=== PATIENT | female | born 1935 | race Asian ===

== ENCOUNTER 2017-08-10 09:00 | Inpatient (IN) ==
[2017-08-10] MEDS ORDERED: NORMAL SALINE 10 ML SYRINGE FLUSH IVP PRN (09:32)
[2017-08-10] MEDS ORDERED: Sodium Chloride 0.9% 1,000 ML PRIMARY IV ONE (09:32)
[2017-08-10] MEDS ORDERED: LIDOCAINE HCL 2 % 10 ML JELLY URO-JECT TOPICAL PRN (09:37)
--- NOTE | 2017-08-10 09:55 | EKG ---
[address] [place] [address] Measurements Intervals [place] Rate: 69 P: 82 LA: 140 QRS: 70 QRSD: 84 T: 162 QT: 403 QTc: 422 Interpretive Statements SINUS RHYTHM ANTEROSEPTAL MYOCARDIAL INFARCTION OF INDETERMINATE AGE Compared to ECG 07/21/2016 19:55:38 Myocardial infarct finding now present Atrial fibrillation no longer present T-wave abnormality no longer present Electronically Signed On 08-10-17 14:06:20 [facility] by Vahe Ayala [email or web address]
[2017-08-10 10:26] LABS: BLOOD UREA NITROGEN 42 mg/dL (7-22); MAGNESIUM 1.3 mg/dL (1.6-2.4); SERUM ALBUMIN 3.5 g/dL (3.5-4.8)
--- NOTE | 2017-08-10 10:49 | DI ---
XR CXR 2VW PA/LAT,08/10/2017 9:32 AM: Clinical History: Rales Previous Exam: July 22, 2016 Findings: Only a frontal radiograph of the chest was obtained, and demonstrates stable increased lung volumes. There is a comminuted fracture of the right proximal humerus. There is no infiltrate or effusion. The cardiomediastinum is unremarkable. Impression: 1. No acute pulmonary disease. 2. Right comminuted proximal humeral fracture.
[2017-08-10 10:52] LABS: BASOPHILS # (AUTO) 0.01 10*3/UL; BASOPHILS % (AUTO) 0.1 % (0-1); EOSINOPHILS # (AUTO) 0 10*3/UL; EOSINOPHILS % (AUTO) 0 % (0-8); Hematocrit [HCT] 27.2 % (37.0-47.0); Hemoglobin [HGB] 8.5 g/dL (12.0-16.0); MEAN CORPUSCULAR HEMOGLOBIN 28.3 PG (27-31); MEAN CORPUSCULAR HGB CONC 31.3 g/dL (33-37); MEAN CORPUSCULAR VOLUME 90.7 FL (81-99); MEAN PLATELET VOLUME 9.5 FL (7.4-12.2); MONOCYTES # (AUTO) 0.72 10*3/UL (0.3-0.8); MONOCYTES % (AUTO) 5.3 % (5-15); NEUTROPHILS # (AUTO) 12.31 10*3/UL; NEUTROPHILS % (AUTO) 91.4 % (50-80)
[2017-08-10 10:53] LABS: VENOUS PH 7.4 (7.32-7.42)
[2017-08-10 11:00] LABS: PLATELET MORPHOLOGY COMMENT NORMAL MORPHOLOGY (NORM); WBC MORPHOLOGY COMMENT NORMAL MORPHOLOGY (NORM)
[2017-08-10 11:01] LABS: RBC MORPHOLOGY COMMENT SEE COMMENTS (NORM)
[2017-08-10 12:04] LABS: BILIRUBIN,URINE MODERATE (NEG); CLARITY,URINE CLEAR (CLEAR); COLOR,URINE YELLOW (Y); GLUCOSE, URINE (UA) NEGATIVE (NEG); NITRATE,URINE POSITIVE (NEG); OCCULT BLOOD,URINE NEGATIVE (NEG); PH,URINE 5.5 (5.0-8.5); PROTEIN,URINE 30 mg/dl (NEG); UROBILINOGEN,URINE 0.2 EU/dL (0.2)
[2017-08-10 12:09] LABS: URINE SAMPLE TYPE CATH SPECIMEN
[2017-08-10 12:10] LABS: BACTERIA,URINE FEW; SQUAMOUS EPITHELIAL CELL,UR FEW
--- NOTE | 2017-08-10 12:30 | DI ---
CT Head WO Contrast,08/10/2017 9:32 AM: Clinical History: Confusion Previous Exam: None at this facility. Findings: Multiple helically acquired CT images are obtained through the brain without contrast, and demonstrat e diffuse age related volume loss. There is no mass, hemorrhage nor midline shift. Peripheral vascula r calcifications are noted. Impression: Diffuse age-related volume loss without acute intracranial pathology.
[2017-08-10] MEDS ORDERED: ASPIRIN 81 MG (BABY) CHEWABLE TABLET PO ONE (12:47)
[2017-08-10] MEDS ORDERED: cefTRIAXone Inj 1 GM in Sodium Chloride 0.9% 100 ML IV ONE (13:03)
--- NOTE | 2017-08-10 14:01 | DI ---
XR SHOULDER MIN 2VW,08/10/2017 9:39 AM: Clinical History: Pain status post fall Previous Exam: None at this facility. Findings: 3 views of the left shoulder were obtained, and demonstrate a left proximal humeral head fracture. Th ere is displacement of the fragments. Alignment relative to the scapula is near-anatomic. The adjacent left lung and chest wall are unremarkable. Impression: Slightly comminuted left proximal humeral fracture.
--- NOTE | 2017-08-10 14:01 | DI ---
XR HUMERUS MIN 2VW,08/10/2017 9:40 AM: Clinical History: Shoulder pain status post fall. Previous Exam: Same date. Findings: AP and lateral views of the left humerus demonstrate a comminuted left proximal humeral head fracture . The remainder of the humerus is unremarkable. Relationship with the glenoid is near-anatomic. Impression: Comminuted left humeral head fracture.
--- NOTE | 2017-08-10 16:02 | PDOC ---
Past Medical History Medical History: 1. COPD, recently placed on 2 L of oxygen in the last 2 weeks. 2. Tobacco abuse. 3. Reportedly, osteoporosis Surgical History: None Pertinent Family History: She states that her father of lung cancer Past Social History: Smokes, doesn't drink alcohol, lives with her significant other, has 3 children described as healthy. Tobacco Use: Former Smoker In the Past 12 Months, Have Used or Abuse Any of the Following Substance: None Medication / Allergies Home Medications: Home Medications Medication Instructions Recorded Confirmed Type Albuterol Sulfate [Ventolin Hfa] 2 puff INH Q4-6H #1 inh 09/15/16 06/28/17 Rx Amlodipine Besylate 1 unit PO QD #90 tab 04/26/17 Clinic Clonidine HCl 1 tab PO BID #180 tab 04/26/17 Clinic Losartan Potassium 1 unit PO QD #90 tab 04/26/17 Clinic amlodipine 10 mg tablet 10 mg PO QDAY #90 tab 06/30/17 06/30/17 Rx fluticasone 200 mcg-vilanterol 25 1 inh INH QD #1 ea 06/30/17 06/30/17 Rx mcg/dose powder for inhalation Allergies/Adverse Reactions: Allergies 3 Allergy/AdvReac Type Severity Reaction Status Date / Time No Known Allergies Allergy Verified 08/10/17 09:29 Exam - Vitals Vital Signs: Vital Signs Temperature 96.6 F Temperature Source Temporal Artery Scan Pulse Rate [Pulse Oximeter] 70 Respiratory Rate 20 Blood Pressure [Right Arm] 78/64 Pulse Ox 100 Oxygen Flow Rate 4 Oxygen Delivery Method Nasal Cannula Height 4 ft 8 in Weight 80 lb Results - Labs CBC and BMP: 08/10/17 10:47 08/10/17 10:13
--- NOTE | 2017-08-10 16:17 | PDOC ---
HPI - History of Present Illness Date of Service: 08/10/17 Time of Service: 16:00 Chief Complaint: Weakness History of Present Illness: This is an 82 years old female with medical history significant for history of hypertension, COPD on oxygen, failure to thrive, right breast mass that she refused investigations for before who was sent to the ER because of weakness. In the ER she was found to be hypotensive, lab tests indicated acute renal failure, elevated troponin and also elevated lactate she was given fluids, aspirin and a dose of Rocephin. Patient herself doesn't know who called the medics and why she is in the hospital. When specifically asked about chest pain she denied chest pain, denied shortness of breath. She denied nausea, denied vomiting. She did admit to the falling but she couldn 't tell me exactly how did that happen but she said 2 weeks ago. Apparently she is not eating well. Patient indicated to nursing staff that she wanted to . When asked specifically about that she couldn't tell me why she would want that. She did indicate that she wanted to be DO NOT RESUSCITATE though. There is a an old record indicated that she signed DO NOT RESUSCITATE. Communication with her is also difficult because of the language barrier in addition she tends to ramble and goes off track. Past Medical History Medical History: 1. COPD, on oxygen 2 L a minute. 2. Tobacco abuse. 3. Reportedly, osteoporosis. 4. Hypertension. 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 6. Failure to thrive Surgical History: None Pertinent Family History: She states that her father of lung cancer Past Social History: Smokes, doesn't drink alcohol, lives with her significant other, has 3 children described as healthy. Tobacco Use: Former Smoker In the Past 12 Months, Have Used or Abuse Any of the Following Substance: None Alcohol Use: None Medication / Allergies Home Medications: Home Medications Medication Instructions Recorded Confirmed Type Albuterol Sulfate [Ventolin Hfa] 2 puff INH Q4-6H #1 inh 09/15/16 08/10/17 Rx Amlodipine Besylate 1 unit PO QD #90 tab 04/26/17 Clinic Clonidine HCl 1 tab PO BID #180 tab 04/26/17 Clinic Losartan Potassium 1 unit PO QD #90 tab 04/26/17 Clinic amlodipine 10 mg tablet 10 mg PO QDAY #90 tab 06/30/17 08/10/17 Rx fluticasone 200 mcg-vilanterol 25 1 inh INH QD #1 ea 06/30/17 08/10/17 Rx mcg/dose powder for inhalation Allergies/Adverse Reactions: Allergies 3 Allergy/AdvReac Type Severity Reaction Status Date / Time No Known Allergies Allergy Verified 08/10/17 16:45 Review of Systems - Review of Systems All Systems: Reviewed & No Additional Complaints Except as Stated Exam - General General Appearance: No Acute Distress Additional General Exam Details: Patient is cachectic - Head Head Exam: Normal Inspection - ENT ENT Exam: POSITIVE: Normal Exam - Neck Neck Exam: Normal Inspection - Respiratory Additional Respiratory Exam Details: Few crackles at the bases - Cardiovascular Cardiovascular Exam: POSITIVE: RRR - GI/Abdominal GI/Abdominal Exam: POSITIVE: Normal Bowel Sounds, Non Tender, Non Distended, Soft - Rectal Rectal Exam: POSITIVE: Deferred - External Exam: POSITIVE: Deferred Exam: POSITIVE: Deferred - Extremities Additional Extremities Exam Details: No edema. Left arm in a sling. Bruising noted on the external surface of the left arm - Neurological Neurological Exam: POSITIVE: Alert Additional Neurological Exam Details: She does not know the year or the month. She doesn't know where she was at. She can't give a clear history. - Psychiatric Psychiatric Exam: POSITIVE: Flat Affect - Integumentary Additional Integumentary Exam Details: Poor hygiene noted in addition to decubitus ulceration at the coccyx. Results - Labs CBC and BMP: 08/10/17 10:47 08/10/17 10:13 Assessment and Plan - Patient Problems (1) Hypotension Current Visit: Yes Status: Acute Comment: Maybe secondary to sepsis or dehydration. I think will give her some fluid and give a dose of antibiotics. And then will see her response. I did speak with her son they don't want aggressive measures. Because of her elevated BNP will be cautious with fluid resuscitation. Code(s): I95.9 - Hypotension, unspecified (2) Left humeral fracture Current Visit: Yes Status: Acute Comment: will write for pain medication, her left arm is in a sling. Code(s): S42.302A - Unspecified fracture of shaft of humerus, left arm, initial encounter for closed fracture (3) Non-ST elevation [place] (NSTEMI) Current Visit: Yes Status: Acute Comment: She is denying chest pain, denying shortness of breath. This may be secondary to the hypertension itself. I think because of the malnourishment and the anemia I don't think will give her more anticoagulation. She got aspirin continue with the aspirin and will put her on Lipitor. Because of the anemia of unclear etiology it is not clear whether she bled or all this is a result of her malnourishment I don't think I'll give her anticoagulation or add Plavix. In addition she has a history of previous rectus sheath hematoma. Code(s): I21.4 - Non-ST elevation (NSTEMI) myocardial infarction (4) Acute renal failure Current Visit: Yes Status: Acute Comment: Her creatinine was normal before in 2016 will give her some fluid and see whether her kidney function will improve. We'll watch her output. Code(s): N17.9 - Acute kidney failure, unspecified (5) Anemia Current Visit: Yes Status: Acute Comment: We'll check a ferritin, B12 and folate level. We'll check iron stores. This may be secondary to her malnourishment. She isn't giving a history of bleeding. Will put her on because omeprazole . Code(s): D64.9 - Anemia, unspecified (6) Loss of weight Current Visit: No Status: Acute Comment: She is not eating well. And she's been losing weight. Previous CT indicated that she had a right breast mass however apparently she refused investigation for it before. This may be secondary to underlying cancer. Code(s): R63.4 - Abnormal weight loss
[2017-08-10] MEDS ORDERED: DOCUSATE 100 MG CAPSULE PO PRN (16:18)
[2017-08-10] MEDS ORDERED: LIDOCAINE W/ SODIUM BICARB 0.5 ML SYR SUBD PRN (16:18)
[2017-08-10] MEDS ORDERED: ONDANSETRON 4 MG/2 ML VIAL IVP PRN (16:18)
[2017-08-10] MEDS ORDERED: MORPHINE SULFATE 2 MG/1 ML IVP PRN ×2 (16:41→17:16)
[2017-08-10] MEDS ORDERED: Ertapenem Inj 1 GM in Sodium Chloride 0.9% 100 ML IV SCH (16:45)
[2017-08-10] MEDS ORDERED: Heparin Drip 25,000 UNIT/500 ML BAG IV SCH (17:00)
[2017-08-10] MEDS ORDERED: Magnesium Sulfate 2gm (Premix) 2 GM/50 ML BAG IV ONE (17:07)
[2017-08-10] MEDS ORDERED: Sodium Chloride 0.9% 100 ML IV ONE (17:23)
[2017-08-10] MEDS ORDERED: ERTAPENEM 1 GM VIAL ONE (17:23)
[2017-08-10] MEDS: Sodium Chloride 0.9% 1,000 ML PRIMARY IV SCH (17:30)
[2017-08-10] MEDS: ACETAMINOPHEN 325 MG TABLET PO PRN (17:30)
[2017-08-10] MEDS: ATORVASTATIN 40 MG TABLET PO SCH (20:47)
--- NOTE | 2017-08-10 20:50 | PDOC ---
General Adult HPI - General Chief Complaint: General Medical Stated Complaint: dehydrated, not eating, "want to " Date Seen by Provider: 08/10/17 Time Seen by Provider: 09:10 Source: POSITIVE: Patient, EMS Exam Limitations: POSITIVE: Language barrier (Romanian is patient's second language; Congolese is the patient's [place] tongue.) Nurse's Notes Reviewed & Considered: Yes EMS Report Reviewed & Considered: Verbal - History of Present Illness Initial Comment: The patient is an 82-year-old female who is brought to the emergency room by ambulance. According to ambulance report, the patient is cared for by her , who is ill with prostate cancer; her also takes care of their handicapped grandson. Patient has been getting progressively weak for the last 2 weeks. Patient fell a few days ago, injuring her arm, left. Patient has not been able to walk for many days. She reportedly has not eaten for at least 2 days. Paramedics report that on their arrival she was sitting in a seat which was soaked with urine. There were some feces on her lower legs. Paramedics report a blood pressure of 65/50 at the scene. Patient states that she "used to smoke "but stopped smoking 6 months ago. She reportedly has a history of hypertension for which she takes amlodipine, clonidine and losartan and she also takes spiral lactone. Patient denies any head chest or abdominal pain. Patient states that "she wants to ". Patient is very unkempt and is cachectic and is estimated that the patient weighs about 70-80 pounds. Have you received a tetanus shot in the past 10 years?: Unknown Body Location Affected: REPORTS: Upper Extremity (L) (Injured left shoulder in a fall several days ago), Other (Progressive weakness and inability to care for herself, or for her to care for her. Not eating or drinking incontinent of urine and probably stool) Timing: REPORTS: Gradual, Unknown Duration: Unknown Severity: Severe Quality: REPORTS: Other (Patient denies any pain except to her left shoulder) Context: REPORTS: Recent Trauma (Fell a few days ago injuring her left shoulder) Modifying Factors: improves with: Other (Progressive weakness and patient presently unable to stand) Similar Symptoms Previously: No Recent Care Received: REPORTS: Denies Any Prior Injuries Related to Current Complaint?: Yes (injury to left shoulder as above) - Patient Home Medications Home Medications: Home Medications Albuterol Sulfate [Ventolin Hfa] 2 puff INH Q4-6H #1 inh 09/15/16 Amlodipine Besylate 1 unit PO QD #90 tab 04/26/17 Clonidine HCl 1 tab PO BID #180 tab 04/26/17 Losartan Potassium 1 unit PO QD #90 tab 04/26/17 amlodipine 10 mg tablet 10 mg PO QDAY #90 tab 06/30/17 fluticasone 200 mcg-vilanterol 25 mcg/dose powder for inhalation 1 inh INH QD # 1 ea 06/30/17 - Patient Allergies Allergies/Adverse Reactions: Allergies 3 Allergy/AdvReac Type Severity Reaction Status Date / Time No Known Allergies Allergy Verified 08/10/17 16:45 Past Medical History - heen HEENT History: Hard of Hearing Cardiovascular History: Hypertension Additional Cardiovasular History: stress test scheduled Respiratory History: COPD, Emphysema, Shortness of Breath, Pneumonia, Home Oxygen Use Gastrointestinal History: Denies History Genitourinary History: Incontinence Endocrine History: Denies History Musculoskeletal History: Osteoporosis, Back Pain Prosthesis or Implant: No Neurological History: Denies History Additional Neurological History: forgetfulness Blood Disorders: Denies History Psychiatric History: Denies History History of Sexually Transmitted Diseases: No Cancer History: Denies History In Past Year Been Physically Harmed or Verbally Threatened: No History of MDRO: No History of Other Communicable Diseases: No Tobacco Use: Former Smoker Alcohol Use: None In the Past 12 Months, Have Used or Abuse Any Substance: None Previous Surgical History: No Type / Date of Surgery: CHOLECYSTECTOMY Anesthesia Reactions: No Malignant Hyperthermia: No Significant Family History: No pertinent family hx Past Medical History Reviewed: Reviewed - No Changes ROS - Limitations ROS Limitations: Language Barrier (Patient difficult to understand; Romanian is her second language with Congolese being her first), Mental Impairment (Patient confused to date and president; oriented to place and person) Constitution: REPORTS: Weakness, Weight Loss Cardiovascular: REPORTS: Denies Cardiac Symptoms Respiratory: REPORTS: Denies Resp Symptoms Neurological: REPORTS: Confusion Gastrointestinal: REPORTS: Denies GI Symptoms Endocrine: REPORTS: Denies Symptoms Musculoskeletal: REPORTS: Recent Injury (Left shoulder pain) Genitourinary: REPORTS: Other (Incontinent) Eyes: REPORTS: Denies Symptoms ENT: REPORTS: Denies Symptoms Skin: REPORTS: Denies Skin Symptoms Lympathic: REPORTS: Denies Lympathic Symptoms Immunologic: POSITIVE: Denies Symptoms Psychiatric: POSITIVE: Denies Psych Symptoms General Adult Exam - General Appearance General Appearance: POSITIVE: Alert, Cooperative, No Acute Distress, Other ( Cachectic with prominent muscle wasting. Estimated the patient weighs between 70 and 80 pounds. Patient not able to stand on scale. Very weak and poorly kept). NEGATIVE: No Evidence of Trauma (Ecchymosis and pain on palpation left shoulder and upper arm) - HEENT HEENT: POSITIVE: Head Inspection Nml, Eyes Inspection Nml, Ears Inspection Nml, Nose Inspection Nml, Oral/Dental Inspect. Nml, Pharynx Inspect. Nml, PERRL, EOMI , Other (Mucous membranes dry) - Pupils Pupil Size: 3 mm: Bilateral (PERRLA) - Neck Neck: POSITIVE: Normal Inspection, Thyroid Normal - Respiratory Respiratory: POSITIVE: Rales (Diffuse rales). NEGATIVE: Breath Sounds Normal - Cardiovascular Cardiovascular: POSITIVE: Regular Rate & Rhythm, No Murmur, No Gallop, PMI Normal Peripheral Pulses: Radial (R): 2+, Radial (L): 2+ - Abdomen Abdomen: Soft: (All Quadrants), Normal Bowel Sounds: (All Quadrants), Denies Tenderness: (All Quadrants), No Splenomegaly: (All Quadrants), No Hepatomegaly: (All Quadrants), No Guarding: (All Quadrants), No Rebound: (All Quadrants), No Palpable Pulse: (All Quadrants), No Palpabale Mass: (All Quadrants), No Distention: (All Quadrants), No Rigidity: (All Quadrants) - Back Back: POSITIVE: Normal Inspection - Skin Skin: POSITIVE: Normal Color, Warm, Dry, No Rash - Extremities Extremity: Non-Tender: (RUE), (RLE), (LLE), Normal ROM: (RUE), (RLE), (LLE), Normal Inspection: (LLE), (RLE), (RUE), Pelvis Stable: (All Extremities), Normal Tendon Exam: (All Extremities), Tender: (LUE), Ecchymosis: (LUE) (left upper arm) Additional Extremities Details: Examination of extremities shows tenderness on palpation over the left shoulder with limited range of motion. There is ecchymosis over the left upper arm. No gross deformities. - Neurological / Psychological Neurological: POSITIVE: Affect Apporpriate, spinal surgeon Normal As Tested, Motor Normal, Sensation Normal, Disoriented To Person, Disoriented To Time. NEGATIVE: Oriented X3 (Confused to date and president) Images - Complete Complete: 1 - Pain on palpation; ecchymosis General Adult Progress - Results Reviewed by me Xrays/CTs/US Reviewed by me: Yes Discussed with Radiologist: Yes Radiology Findings: X-ray left shoulder and upper arm shows a fracture of the left proximal humerus. CT scan of the head shows no acute findings. Chest x- ray normal per radiologist Lab Results Reviewed by Me: Yes (UA shows 5-10 red blood cells and white blood cells, opponent 0.474, BNP 45) CBC and BMP: 08/10/17 10:47 08/10/17 10:13 EKG Interpreted/Reviewed By Me:: Yes (Q waves in anteroseptal leads) EKG Interpretation:: POSITIVE: Normal Sinus Rhythm, Normal Rate, Normal Intervals, Normal ST/T, Abnormal EKG. NEGATIVE: Normal QRS (Q waves anteroseptal leads) - Patient's Progress Pain Medication Addressed: POSITIVE: Not Applicable School/Work Release Addressed: POSITIVE: Not Applicable Re-Examine Time: 13:00 Re-Examine Comment: Patient hydrated with about 700 mL in ER. Condition essentially unchanged. Blood pressure is around 80/50; pulse remains around 70. Case was discussed with Dr. Quintero, hospitalist, who will admit the patient for further evaluation and treatment. Patient signed a DO NOT RESUSCITATE request on 01/22/2016. Status: POSITIVE: Unchanged, Re-Examined Antibiotics Given: Yes (patient given a gram of Rocephin IV in the emergency room after blood cultu) Quality Measure Initiative: CP/AMI: POSITIVE: EKG, ASA - Consult Consult (If Yes, Name of Consulting MD & Time Called): Yes (Dr. Quintero, hospitalist, 1300) Consulting MD will see pt:: POSITIVE: [facility] Admit Counseled: POSITIVE: Patient, RE: Lab Results, RE: Radiology Results, RE: DX, RE : Need for F/U Patient Care Time - Estimated PCT Patient Care Time (In Minutes): 75 Vital Signs - VS Reviewed Vital Signs Reviewed: Yes Discharge Clinical Impression: Dehydration, Cachexia, Left humeral fracture, Non-ST elevation CT (NSTEMI), Anemia, Loss of weight, Urinary tract infection, Elevated brain natriuretic peptide (BNP) level, Do not resuscitate Discharge Disposition: Admit to Inpatient Condition: Poor Date Decision to Admit to Inpatient: 08/10/17 Time Decision to Admit to Inpatient: 11:00
[2017-08-11] MEDS: ACETAMINOPHEN 325 MG TABLET PO PRN ×2 (01:09→15:46)
[2017-08-11 07:28] LABS: BASOPHILS # (AUTO) 0 10*3/UL; BASOPHILS % (AUTO) 0 % (0-1); EOSINOPHILS # (AUTO) 0.01 10*3/UL; EOSINOPHILS % (AUTO) 0.1 % (0-8); Hematocrit [HCT] 25.5 % (37.0-47.0); Hemoglobin [HGB] 7.8 g/dL (12.0-16.0); LYMPHOCYTES # (AUTO) 0.56 10*3/uL; MEAN CORPUSCULAR HEMOGLOBIN 28.2 PG (27-31); MEAN CORPUSCULAR HGB CONC 30.6 g/dL (33-37); MEAN CORPUSCULAR VOLUME 92.1 FL (81-99); MEAN PLATELET VOLUME 9.6 FL (7.4-12.2); MONOCYTES # (AUTO) 0.59 10*3/UL (0.3-0.8); MONOCYTES % (AUTO) 3.9 % (5-15); RED BLOOD COUNT 2.77 10^6/uL (4.20-5.40)
[2017-08-11] MEDS: MAGNESIUM OXIDE 400 MG TABLET PO SCH (07:55)
[2017-08-11] MEDS: OMEPRAZOLE 20 MG CAPSULE PO SCH (07:55)
[2017-08-11 08:12] LABS: PLATELET MORPHOLOGY COMMENT NORMAL MORPHOLOGY (NORM); RBC MORPHOLOGY COMMENT NORMAL MORPHOLOGY (NORM); WBC MORPHOLOGY COMMENT NORMAL MORPHOLOGY (NORM)
[2017-08-11 08:37] LABS: BLOOD UREA NITROGEN 35 mg/dL (7-22); SERUM ALBUMIN 2.5 g/dL (3.5-4.8)
--- NOTE | 2017-08-11 09:05 | PDOC(PROG) ---
Date and Time of Service: 08/11/2017 9:04 AM Interval History: Subjective Patient is still have some pain in the left the shoulder she said when she moves it. She denying chest pain, denying shortness of breath denying nausea. Per further information that we obtained last night apparently patient was laying on the couch soaked with feces and urine when the medic went to get her. She did decubitus ulcer in the coccyx as. Objective : Data - Labs CBC and BMP: 08/11/17 07:16 08/11/17 07:16 Objective : Exam - General General Appearance: No Acute Distress, Cooperative Additional General Exam Details: Cachectic - Head Head Exam: Normal Inspection - Eye Eye Exam: Normal Appearance - ENT ENT Exam: Normal Exam - Neck Neck Exam: Normal Inspection - Respiratory Respiratory Exam: Clear to Auscultation - Bilaterally - Cardiovascular Cardiovascular Exam: RRR - GI/Abdominal GI/Abdominal Exam: Normal Bowel Sounds, Non Tender, Non Distended, Soft, No Organomegaly - Rectal Rectal Exam: Deferred - External Exam: Deferred - Extremities Additional Extremities Exam Details: Left arm in a sling. Bruising noted to the left shoulder - Back Back Exam: Normal Inspection - Neurological Neurological Exam: Alert Additional Neurological Exam Details: Still does not know the month or the year. - Psychiatric Psychiatric Exam: Flat Affect Assessment and Plan - Patient Problems (1) Hypotension Current Visit: Yes Status: Acute Comment: Seems to be better I think we'll cut back on the fluid see whether we can stop it in today. The reason for the hypotension is either due to sepsis or dehydration. But the other possiblity to we discovered is that she is on multiple blood pressure medications that include amlodipine, clonidine, losartan and spironolactone and may be that also played part in it. We've held all her blood pressure medications Code(s): I95.9 - Hypotension, unspecified (2) Left humeral fracture Current Visit: Yes Status: Acute Comment: Pain medication written. I did speak with the Dr. Burnett to have a look at the x-ray and see if there is anything else need to be done. Code(s): S42.302A - Unspecified fracture of shaft of humerus, left arm, initial encounter for closed fracture (3) Non-ST elevation [place] (NSTEMI) Current Visit: Yes Status: Acute Comment: We decided to treat medically just because of her malnourished state. She is on aspirin and Lipitor. She can't tolerate metoprolol yet. Because of the anemia I decided not to give her Plavix or put her on heparin drip. However just because of her the immobility I think will start low-dose Lovenox for DVT prophylaxis Code(s): I21.4 - Non-ST elevation (NSTEMI) myocardial infarction (4) Acute renal failure Current Visit: Yes Status: Acute Comment: This seems to be secondary to dehydration. In addition she was on aldactone we got this information late last night will hold it. its improving I think we'll cut back on her fluid. Code(s): N17.9 - Acute kidney failure, unspecified (5) Anemia Current Visit: Yes Status: Acute Comment: This may be secondary to her malnourished state. She is on omeprazole. Ferritin seems to be low. Will give some iron infusion. Will discuss with the family to see if they accept blood transfusion Code(s): D64.9 - Anemia, unspecified (6) Loss of weight Current Visit: Yes Status: Acute Comment: Unclear reason. She has a mass in the right breast which was not investigated. there may be an element of dementia also Code(s): R63.4 - Abnormal weight loss
[2017-08-11] MEDS: ASPIRIN 325 MG TABLET PO SCH (10:22)
[2017-08-11] MEDS ORDERED: Iron Sucrose Inj 300 MG in Sodium Chloride 0.9% 250 ML IV ONE (13:00)
[2017-08-11] MEDS: Sodium Chloride 0.9% 1,000 ML PRIMARY IV SCH (13:30)
[2017-08-11] MEDS: Ertapenem Inj 0.5 GM in Sodium Chloride 0.9% 100 ML IV SCH (16:24)
[2017-08-11] MEDS ORDERED: SODIUM CHLORIDE 0.9% IV SCH (17:00)
[2017-08-11] MEDS ORDERED: ERTAPENEM IV SCH (17:00)
[2017-08-11] MEDS: FLUTICASONE/SALMETEROL 250/50 UD INHALER INH SCH (19:31)
[2017-08-11] MEDS: ATORVASTATIN 40 MG TABLET PO SCH (20:35)
[2017-08-12] MEDS: Sodium Chloride 0.9% 1,000 ML PRIMARY IV SCH (03:21)
[2017-08-12] MEDS: FLUTICASONE/SALMETEROL 250/50 UD INHALER INH SCH ×2 (07:04→18:55)
[2017-08-12] MEDS: MAGNESIUM OXIDE 400 MG TABLET PO SCH (07:20)
[2017-08-12] MEDS: OMEPRAZOLE 20 MG CAPSULE PO SCH (07:20)
[2017-08-12 08:04] LABS: Hematocrit [HCT] 25.6 % (37.0-47.0); Hemoglobin [HGB] 8.3 g/dL (12.0-16.0); MEAN CORPUSCULAR HGB CONC 32.3 g/dL (33-37); MEAN CORPUSCULAR VOLUME 90 FL (81-99); RED BLOOD COUNT 2.85 10^6/uL (4.20-5.40)
[2017-08-12 08:05] LABS: BASOPHILS % (AUTO) 0.2 % (0-1); LYMPHOCYTES # (AUTO) 0.84 10*3/uL; MONOCYTES # (AUTO) 0.47 10*3/UL (0.3-0.8); MONOCYTES % (AUTO) 3.9 % (5-15); NEUTROPHILS # (AUTO) 10.67 10*3/UL
[2017-08-12 08:06] LABS: BASOPHILS # (AUTO) 0.02 10*3/UL; EOSINOPHILS # (AUTO) 0.12 10*3/UL; PLATELET MORPHOLOGY COMMENT NORMAL MORPHOLOGY (NORM); RBC MORPHOLOGY COMMENT SEE COMMENTS (NORM); WBC MORPHOLOGY COMMENT NORMAL MORPHOLOGY (NORM)
[2017-08-12 08:07] LABS: BLOOD UREA NITROGEN 18 mg/dL (7-22); SERUM ALBUMIN 2.7 g/dL (3.5-4.8)
[2017-08-12] MEDS: ASPIRIN 325 MG TABLET PO SCH (08:16)
[2017-08-12] MEDS: Multivitamin Tab 1 TAB PO SCH (08:16)
[2017-08-12] MEDS ORDERED: ENOXAPARIN SODIUM 30 MG/0.3 ML SYRINGE SUBCUT SCH (09:00)
--- NOTE | 2017-08-12 10:21 | PDOC(PROG) ---
Date and Time of Service: 08/12/2017 10:16 AM Interval History: Subjective Patient denying new symptoms. Breathing seems to be okay. Denying dizziness. Still have some pain in the left shoulder but that's with movement. I did meet with the son yesterday and he is in agreement with the current plan. They are looking though for her to go to a correction when she is medically stable. At one point in time they may consider hospice for her. Objective : Data - Labs CBC and BMP: 08/12/17 07:12 08/12/17 07:12 Objective : Exam - General General Appearance: No Acute Distress, Cooperative, Thin - Head Head Exam: Normal Inspection, Atraumatic - Eye Eye Exam: Normal Appearance - ENT ENT Exam: Normal Exam - Neck Neck Exam: Normal Inspection - Respiratory Additional Respiratory Exam Details: Decreased air entry otherwise clear - Cardiovascular Cardiovascular Exam: RRR - GI/Abdominal GI/Abdominal Exam: Normal Bowel Sounds, Non Tender, Non Distended, No Organomegaly - Rectal Rectal Exam: Deferred - External Exam: Deferred - Extremities Additional Extremities Exam Details: Left arm in a sling - Neurological Neurological Exam: Alert, CN II-XII Intact, Speech Intact / Clear Additional Neurological Exam Details: There is a Kilo section because of the fracture but otherwise she is moving all extremities although she is weak - Psychiatric Psychiatric Exam: Normal Affect Assessment and Plan - Patient Problems (1) Hypotension Current Visit: Yes Status: Acute Comment: This is resolved. We DC'd her fluids. Continue antibiotics for another 2 days and then will stop it Code(s): I95.9 - Hypotension, unspecified (2) Left humeral fracture Current Visit: Yes Status: Acute Comment: Her arm is in a sling we are using conservative management. I did speak with Dr. Burnett and he'll have a look at her Code(s): S42.302A - Unspecified fracture of shaft of humerus, left arm, initial encounter for closed fracture (3) Non-ST elevation RI (NSTEMI) Current Visit: Yes Status: Acute Comment: She is on aspirin, Lipitor, and blood pressure is rising so I think we can start her on beta tien. As I said I spoke with the family they don't want interventions. And they are agreeable though with the current treatment. Code(s): I21.4 - Non-ST elevation (NSTEMI) myocardial infarction (4) Acute renal failure Current Visit: Yes Status: Acute Comment: This is resolved Code(s): N17.9 - Acute kidney failure, unspecified (5) Anemia Current Visit: Yes Status: Acute Comment: Her hemoglobin seems to be better today compared to yesterday. We did give her iron infusion. We'll see what her level tomorrow and then will decide about blood transfusion the family were okay with blood transfusion. Code(s): D64.9 - Anemia, unspecified (6) Loss of weight Current Visit: Yes Status: Acute Comment: This is multifactorial. There is a mass in the right breast she may have a underlying breast cancer. In terms of disposition we talked with the family and they wanted to go probably to a correction look into that. Code(s): R63.4 - Abnormal weight loss
[2017-08-12] MEDS: ENOXAPARIN SODIUM 30 MG/0.3 ML SYRINGE SUBCUT SCH (11:27)
[2017-08-12] MEDS: Ertapenem Inj 0.5 GM in Sodium Chloride 0.9% 100 ML IV SCH (17:13)
[2017-08-12] MEDS: ATORVASTATIN 40 MG TABLET PO SCH (20:19)
--- NOTE | 2017-08-12 20:19 | CONSULT ---
Consult Note - Consult Consult Date: 08/12/17 Reason for Consult: Orthopedic Consult (Asked to consult regarding proximal humerus fracture left) Primary Care Provider: Luli Jiang DNP - History of Present Illness History of Present Illness: This patient is a pleasant female seen for a proximal humerus fracture left. She apparently fell at her home. She was found in urine and feces. She has a fairly poor social situation. This generally quite poor. She is admitted this time for a myocardial infarction as well as renal failure. She is cachectic with failure to thrive. She sustained a comminuted proximal humerus fracture and for that reason I have been asked to consult. Dr. Quintero feels like she is a poor surgical candidate. Exam: Of the left upper extremity reveals mild swelling of the proximal humerus. Neurovascular exam intact. Left arm is in a sling. X-rays reveal what appears to be a three-part proximal humerus fracture with impaction. Some displacement noted. Examination present. Impression: Three-part proximal humerus fracture in an 82-year-old cachectic smoking female with current myocardial infarction and renal failure. Plan: Is to recommend nonoperative management. Would recommend follow-up in my office in a couple of weeks for repeat x-ray. If she is still in the hospital at that time, she can come and see me in 3 or 4 weeks. No plans for surgery at this time. Therefore do not see or feel the need to get a CAT scan of her upper humerus. Past Medical History Medical History: 1. COPD, on oxygen 2 L a minute. 2. Tobacco abuse. 3. Reportedly, osteoporosis. 4. Hypertension. 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 6. Failure to thrive Surgical History: None Pertinent Family History: She states that her father of lung cancer Past Social History: Smokes, doesn't drink alcohol, lives with her significant other, has 3 children described as healthy. Tobacco Use: Former Smoker In the Past 12 Months, Have Used or Abuse Any of the Following Substance: None Alcohol Use: None Medication / Allergies Home Medications: Home Medications Medication Instructions Recorded Confirmed Type Albuterol Sulfate [Ventolin Hfa] 2 puff INH Q4-6H #1 inh 09/15/16 08/10/17 Rx Amlodipine Besylate 1 unit PO QD #90 tab 04/26/17 Clinic Clonidine HCl 1 tab PO BID #180 tab 04/26/17 Clinic Losartan Potassium 1 unit PO QD #90 tab 04/26/17 Clinic amlodipine 10 mg tablet 10 mg PO QDAY #90 tab 06/30/17 08/10/17 Rx fluticasone 200 mcg-vilanterol 25 1 inh INH QD #1 ea 06/30/17 08/10/17 Rx mcg/dose powder for inhalation Allergies/Adverse Reactions: Allergies 3 Allergy/AdvReac Type Severity Reaction Status Date / Time No Known Allergies Allergy Verified 08/12/17 18:34 Exam - Vitals Vital Signs: Vital Signs Temperature 97.8 F Temperature Source Temporal Artery Scan Pulse Rate [Apical] 100 Pulse Rate [Pulse Oximeter] 97 Pulse Rate 97 Respiratory Rate 16 Blood Pressure [Right Arm] 163/98 Blood Pressure 97/83 Pulse Ox 96 Oxygen Flow Rate 4 Oxygen Delivery Method Nasal Cannula Height 4 ft 8 in Weight 59 lb Results - Labs CBC and BMP: 08/12/17 07:12 08/12/17 07:12
[2017-08-12] MEDS ORDERED: Metoprolol TARTRATE Tab 25 MG TAB PO SCH (21:00)
[2017-08-13] MEDS: FLUTICASONE/SALMETEROL 250/50 UD INHALER INH SCH ×2 (06:38→19:00)
[2017-08-13 06:40] LABS: Hematocrit [HCT] 24.6 % (37.0-47.0); Hemoglobin [HGB] 7.9 g/dL (12.0-16.0); MEAN CORPUSCULAR HEMOGLOBIN 29.1 PG (27-31); MEAN CORPUSCULAR VOLUME 91 FL (81-99); MEAN PLATELET VOLUME 7.4 FL (7.4-12.2); RED BLOOD COUNT 2.71 10^6/uL (4.20-5.40)
[2017-08-13 06:41] LABS: BAND NEUTROPHILS % 0 % (0-10); BASOPHILS % (MANUAL) 1 % (0-1); EOSINOPHILS % (MANUAL) 0 % (0-8); MONOCYTES % (MANUAL) 1 % (0-12); NEUTROPHILS % (MANUAL) 89 % (50-80); PLATELET MORPHOLOGY COMMENT NORMAL MORPHOLOGY (NORM); RBC MORPHOLOGY COMMENT NORMAL MORPHOLOGY (NORM); WBC MORPHOLOGY COMMENT SEE COMMENTS (NORM)
[2017-08-13] MEDS: OMEPRAZOLE 20 MG CAPSULE PO SCH (09:28)
[2017-08-13] MEDS: ENOXAPARIN SODIUM 30 MG/0.3 ML SYRINGE SUBCUT SCH (09:28)
[2017-08-13] MEDS: ASPIRIN 325 MG TABLET PO SCH (09:28)
[2017-08-13] MEDS: Multivitamin Tab 1 TAB PO SCH (09:28)
[2017-08-13] MEDS: Metoprolol TARTRATE Tab 25 MG TAB PO SCH ×2 (09:28→21:28)
[2017-08-13] MEDS: MAGNESIUM OXIDE 400 MG TABLET PO SCH (09:28)
--- NOTE | 2017-08-13 11:19 | PDOC(PROG) ---
Date and Time of Service: 08/13/2017 11:20 AM Interval History: Subjective Denying new symptoms. She wants to go home. I did explain to her that's when I talked to her son on the other day, the plan is to go to one of the residential. I Did inform her that we will try to contact him. She refuses blood transfusion. Objective : Data - Labs CBC and BMP: 08/13/17 06:03 08/12/17 07:12 Objective : Exam - General General Appearance: No Acute Distress Additional General Exam Details: Cachectic. - Head Head Exam: Normal Inspection - Eye Eye Exam: Normal Appearance - ENT ENT Exam: Normal Exam - Neck Neck Exam: Normal Inspection - Respiratory Additional Respiratory Exam Details: Decreased air entry otherwise clear - Cardiovascular Cardiovascular Exam: RRR - GI/Abdominal GI/Abdominal Exam: Normal Bowel Sounds, Non Tender, Non Distended, Soft - Rectal Rectal Exam: Deferred - External Exam: Deferred - Extremities Additional Extremities Exam Details: Left arm in a sling - Back Additional Back Exam Details: She has a small decubitus ulcer sacral area which was present on admission. - Neurological Neurological Exam: Alert, CN II-XII Intact, Speech Intact / Clear - Psychiatric Psychiatric Exam: Normal Affect Assessment and Plan - Patient Problems (1) Hypotension Current Visit: Yes Status: Acute Comment: This is resolved. Code(s): I95.9 - Hypotension, unspecified (2) Left humeral fracture Current Visit: Yes Status: Acute Comment: Continue conservative management. Code(s): S42.302A - Unspecified fracture of shaft of humerus, left arm, initial encounter for closed fracture (3) Non-ST elevation [place] (NSTEMI) Current Visit: Yes Status: Acute Comment: Continue current medications. She is on aspirin, metoprolol and Lipitor. Code(s): I21.4 - Non-ST elevation (NSTEMI) myocardial infarction (4) Acute renal failure Current Visit: Yes Status: Acute Comment: This is resolved Code(s): N17.9 - Acute kidney failure, unspecified (5) Anemia Current Visit: Yes Status: Acute Comment: She refused blood transfusion. I think with her her denying symptoms and decreased mobility and her prognosis because of her underlying severe cachexia we'll skip that. Code(s): D64.9 - Anemia, unspecified (6) Loss of weight Current Visit: Yes Status: Acute Comment: There may be underlying cancer. Regarding disposition I did speak with c4 planner about the patient's doesn't want to go to the residential she will speak with her son and then see where to go from here. Code(s): R63.4 - Abnormal weight loss
[2017-08-13] MEDS: NORMAL SALINE 10 ML SYRINGE FLUSH IVP PRN (17:12)
[2017-08-13] MEDS: Ertapenem Inj 0.5 GM in Sodium Chloride 0.9% 100 ML IV SCH (17:12)
[2017-08-13] MEDS: ATORVASTATIN 40 MG TABLET PO SCH (21:28)
[2017-08-14] MEDS: ALBUTEROL SULFATE 8.5 GM HFA INHALER INH PRN ×2 (05:14→06:35)
[2017-08-14] MEDS: FLUTICASONE/SALMETEROL 250/50 UD INHALER INH SCH ×2 (06:37→19:01)
[2017-08-14] MEDS: MAGNESIUM OXIDE 400 MG TABLET PO SCH (08:12)
[2017-08-14] MEDS: OMEPRAZOLE 20 MG CAPSULE PO SCH (08:31)
[2017-08-14] MEDS: Multivitamin Tab 1 TAB PO SCH (08:57)
[2017-08-14] MEDS: ENOXAPARIN SODIUM 30 MG/0.3 ML SYRINGE SUBCUT SCH (08:57)
[2017-08-14] MEDS: Metoprolol TARTRATE Tab 25 MG TAB PO SCH ×2 (08:57→21:18)
[2017-08-14] MEDS: ASPIRIN 325 MG TABLET PO SCH (08:58)
--- NOTE | 2017-08-14 12:24 | PDOC(PROG) ---
Date and Time of Service: 08/14/2017 11 AM Interval History: Subjective Patient is denying new symptoms. Pain seemed to be controlled. Denying chest pain denying shortness of breath. Objective : Data - Labs CBC and BMP: 08/13/17 06:03 08/12/17 07:12 Objective : Exam - General General Appearance: No Acute Distress, Cooperative Additional General Exam Details: Cachectic - Head Head Exam: Normal Inspection - Eye Eye Exam: Normal Appearance - ENT ENT Exam: Normal Exam - Neck Neck Exam: Normal Inspection - Respiratory Additional Respiratory Exam Details: Decreased air entry otherwise clear - Cardiovascular Cardiovascular Exam: RRR - GI/Abdominal GI/Abdominal Exam: Normal Bowel Sounds, Non Tender, Non Distended, Soft - Rectal Rectal Exam: Deferred - External Exam: Deferred - Extremities Additional Extremities Exam Details: Left arm in a sling. - Neurological Neurological Exam: Alert, CN II-XII Intact, Moves All Extremities Equally Additional Neurological Exam Details: No focal deficit except left arm is limited movement because of the fracture. Overall she is very weak though. - Psychiatric Psychiatric Exam: Normal Affect Assessment and Plan - Patient Problems (1) Hypotension Current Visit: Yes Status: Acute Comment: This is resolved. I think will DC the Invanz after her tomorrow dose. The plan is for her to go to retirement on Wednesday. Code(s): I95.9 - Hypotension, unspecified (2) Left humeral fracture Current Visit: Yes Status: Acute Comment: Conservative management. Code(s): S42.302A - Unspecified fracture of shaft of humerus, left arm, initial encounter for closed fracture (3) Non-ST elevation [place] (NSTEMI) Current Visit: Yes Status: Acute Comment: She is on aspirin, Lipitor, metoprolol. We decided medical treatment only. Code(s): I21.4 - Non-ST elevation (NSTEMI) myocardial infarction (4) Acute renal failure Current Visit: Yes Status: Acute Comment: This is resolved Code(s): N17.9 - Acute kidney failure, unspecified (5) Anemia Current Visit: Yes Status: Acute Comment: She refused blood transfusion. We did give her iron infusion. I think is secondary to her severe malnourishment. Code(s): D64.9 - Anemia, unspecified (6) Loss of weight Current Visit: Yes Status: Acute Comment: There may be a possibility of underlying cancer. Family want minimal interventions. Code(s): R63.4 - Abnormal weight loss
[2017-08-14] MEDS: NORMAL SALINE 10 ML SYRINGE FLUSH IVP PRN (17:21)
[2017-08-14] MEDS: Ertapenem Inj 0.5 GM in Sodium Chloride 0.9% 100 ML IV SCH (17:21)
[2017-08-14] MEDS: ATORVASTATIN 40 MG TABLET PO SCH (21:18)
[2017-08-15] MEDS: ALBUTEROL SULFATE 8.5 GM HFA INHALER INH PRN ×2 (06:31→19:36)
[2017-08-15] MEDS: FLUTICASONE/SALMETEROL 250/50 UD INHALER INH SCH ×2 (06:32→19:36)
[2017-08-15] MEDS: MAGNESIUM OXIDE 400 MG TABLET PO SCH (08:09)
[2017-08-15] MEDS: OMEPRAZOLE 20 MG CAPSULE PO SCH (08:09)
[2017-08-15] MEDS: ENOXAPARIN SODIUM 30 MG/0.3 ML SYRINGE SUBCUT SCH (08:39)
[2017-08-15] MEDS: Metoprolol TARTRATE Tab 25 MG TAB PO SCH ×2 (08:40→20:33)
[2017-08-15] MEDS: Multivitamin Tab 1 TAB PO SCH (08:40)
[2017-08-15] MEDS: ASPIRIN 325 MG TABLET PO SCH (08:40)
--- NOTE | 2017-08-15 13:59 | DCSUMMARY ---
Hospitalization Summary Hospital Course: Final Discharge Diagnosis: Current Visit Problems Problem Status Onset Code Hypotension Acute I95.9 Left humeral fracture Acute S42.302A Non-ST elevation IA (NSTEMI) Acute I21.4 Acute renal failure Acute N17.9 Anemia Acute D64.9 Dehydration Acute E86.0 Cachexia Acute R64 Urinary tract infection Acute N39.0 Elevated brain natriuretic peptide (BNP) level Acute R79.89 Do not resuscitate Acute Z66 Loss of weight Acute R63.4 Diagnostic Data, Laboratory Data, and Procedures of Signifigance: History and Physical pertinent to Admission: Course of Hospitalization: Past Medical History Medical History: 1. COPD, on oxygen 2 L a minute. 2. Tobacco abuse. 3. Reportedly, osteoporosis. 4. Hypertension. 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 6. Failure to thrive Surgical History: None Pertinent Family History: She states that her father of lung cancer Past Social History: Smokes, doesn't drink alcohol, lives with her significant other, has 3 children described as healthy. Tobacco Use: Former Smoker This very nice 82-year-old female with past medical history significant for COPD , failure to thrive, hypertension, right breast mass she has refused the workup for this was sent to the ER for generalized weakness she was found to be hypotensive and in acute renal failure and elevated troponins in the ER was treated with medical therapy for her non-ST elevation IA rehydrated for her acute renal failure which improved and patient is not wanting to do any more investigation for her weight loss. She does also have a left humeral fracture which requires conservative management and the family and Dr. Matt and physical therapy have decided to patient would be a candidate for a [facility] in [place] where arrangements have been made to be transferred there in the morning patient has no complaints she is lying in bed comfortably with no pain nausea vomiting or chest pain (1) Hypotension this is resolved she received last dose of antibiotic today will be going to [facility] in a.m. (2) Left humeral fracture-conservative management (3) Non-ST elevation IA (NSTEMI) Current Visit: Yes Status: AcuteComment: She is on aspirin, Lipitor, metoprolol. We decided medical treatment only. (4) Acute renal failure Comment: This is resolved (5) Anemia-patient has refused transfusions most likely from the malnourishment unspecified anemia does not want anything done (6) Loss of weight patient and family not interested in the trying to workup the cause could be cancer underlying patient again not interested in working up the cause her any more test On the date of discharge, the patient was examined: Gen.: No acute distress, alert, nontoxic Heart: Regular rate and rhythm, no murmurs, clicks, gallops, or rubs Lungs: Clear to auscultation bilaterally, breathing is nonlabored Abdomen/GI: Normal tones on auscultation, soft, nontender, nondistended Musculoskeletal/extremities: No clubbing, cyanosis, or edema Vitals reviewed and are listed below Vital Signs (24 hrs) Temp Pulse Resp BP Pulse Ox 08/15/17 12:38 98.5 F 76 16 114/62 100 08/15/17 07:43 98.2 F 82 16 128/77 100 08/15/17 05:11 98 08/15/17 04:30 97.8 F 78 16 122/70 97 08/14/17 20:25 97.6 F 80 16 136/75 100 08/14/17 16:36 97.2 F 76 16 144/84 99 Assessment and Plan: 1. As per discharge assessments above 2. Disposition: [facility] living center in [place] 3. Condition on discharge, stable and improved. 4. Diet: regular diet 5. Activities: resume normal activities 6. Follow-Up: 1. PCP 2. 7. Medications at the Time of Discharge: Home Medications Medication Instructions Recorded Confirmed Type Albuterol Sulfate [Ventolin Hfa] 2 puff INH Q4-6H #1 inh 09/15/16 08/10/17 Rx Amlodipine Besylate 1 unit PO QD #90 tab 04/26/17 Clinic Clonidine HCl 1 tab PO BID #180 tab 04/26/17 Clinic Losartan Potassium 1 unit PO QD #90 tab 04/26/17 Clinic amlodipine 10 mg tablet 10 mg PO QDAY #90 tab 06/30/17 08/10/17 Rx Acetaminophen [Tylenol] 650 mg PO Q6H PRN tab 08/15/17 Rx Aspirin 325 mg PO DAILY tab 08/15/17 Rx Atorvastatin Calcium [Lipitor] 40 mg PO BEDTIME tab 08/15/17 Rx Docusate Sodium [Colace] 100 mg PO BID PRN cap 08/15/17 Rx Flutica/Salmet 250/50 Inhaler 1 puff INH RTBID inhaler 08/15/17 Rx [Advair Diskus 250/50 Inhaler] Magnesium Oxide [Mag-Ox] 400 mg PO C BK tab 08/15/17 Rx Metoprolol Tartrate Tab 25 mg PO BID tab 08/15/17 Rx [Lopressor Tab] Multivitamin Tab [Thera Tab] 1 tab PO DAILY tab 08/15/17 Rx Normal Saline Flush [Saline Flush] 5 - 20 ml IVP BID PRN syringe 08/15/[address] [PriLOSEC] 20 mg PO AC BK cap 08/15/17 Rx 3 Generic Name Dose Route Start Last Admin Trade Name Freq PRN Reason Stop Dose Admin Acetaminophen 650 mg 08/10/17 16:18 08/11/17 15:46 Tylenol PO 650 mg Q6H PRN Administration Pain or Fever Albuterol Sulfate 2 puff 08/11/17 11:34 08/15/17 06:31 Proair Hfa Inhaler INH 2 puff RTQ4H PRN Administration Shortness of Breath Aspirin 325 mg 08/11/17 09:00 08/15/17 08:40 Aspirin PO 325 mg DAILY MILAGROS Administration Atorvastatin Calcium 40 mg 08/10/17 21:00 08/14/17 21:18 Lipitor PO 40 mg BEDTIME MILAGROS Administration Docusate Sodium 100 mg 08/10/17 16:18 Colace PO BID PRN Constipation Enoxaparin Sodium 30 mg 08/12/17 10:13 08/15/17 08:39 Lovenox Inj SUBCUT 30 mg DAILY MILAGROS Administration Ertapenem 0.5 gm/ Sodium 100 mls @ 200 mls/hr 08/11/17 17:00 08/14/17 17:21 Chloride IV 08/15/17 19:00 200 mls/hr Q24H MILAGROS Administration Lidocaine HCl 10 ml 08/10/17 09:37 Xylocaine Uro-Ject 2% TOPICAL ONCE PRN Discomfort catheter insertion Lidocaine HCl 0.5 ml 08/10/17 16:18 Lidocaine Buffered Inj SUBD ONCE PRN IV Starts Magnesium Oxide 400 mg 08/11/17 07:00 08/15/17 08:09 Mag-Ox PO 400 mg C BK MILAGROS Administration Metoprolol Tartrate 25 mg 08/13/17 09:00 08/15/17 08:40 Lopressor Tab PO 25 mg BID MILAGROS Administration Morphine Sulfate 1 - 2 mg 08/10/17 17:16 08/14/17 18:26 Morphine Inj IVP 1 mg Q4H PRN Administration Pain Multivitamins Therapeutic 1 tab 08/12/17 09:00 08/15/17 08:40 Thera Tab PO 1 tab DAILY MILAGROS Administration Omeprazole 20 mg 08/11/17 07:00 08/15/17 08:09 Prilosec PO 20 mg AC BK MILAGROS Administration Ondansetron HCl 4 mg 08/10/17 16:18 Zofran Inj IVP Q4H PRN NAUSEA / VOMITING Fluticasone/Salmeterol 1 puff 08/11/17 19:00 08/15/17 06:32 Advair Diskus 250/50 Inhaler INH 1 puff RTBID MILAGROS Administration Sodium Chloride 5 - 20 ml 08/10/17 16:18 08/14/17 17:21 Saline Flush IVP 10 ml BID PRN Administration Flush 8. Time, care, counseling and coordination of care for this discharge is greater than 30 minutes. Exam - Vitals Vital Signs: Vital Signs Temperature 98.5 F Temperature Source Temporal Artery Scan Pulse Rate [Apical] 100 Pulse Rate [Pulse Oximeter] 76 Pulse Rate 84 Respiratory Rate 16 Blood Pressure [Right Arm] 114/62 Blood Pressure 97/83 Pulse Ox 100 Oxygen Flow Rate 2 Oxygen Delivery Method Nasal Cannula Height 4 ft 8 in Weight 62 lb 2.726 oz
[2017-08-15] MEDS: Ertapenem Inj 0.5 GM in Sodium Chloride 0.9% 100 ML IV SCH (16:50)
[2017-08-15] MEDS: ATORVASTATIN 40 MG TABLET PO SCH (20:33)
[2017-08-16] MEDS: ALBUTEROL SULFATE 8.5 GM HFA INHALER INH PRN ×3 (01:38→11:27)
[2017-08-16] MEDS: ACETAMINOPHEN 325 MG TABLET PO PRN (04:15)
[2017-08-16] MEDS: FLUTICASONE/SALMETEROL 250/50 UD INHALER INH SCH (07:01)
[2017-08-16] MEDS: MAGNESIUM OXIDE 400 MG TABLET PO SCH (07:04)
[2017-08-16] MEDS: OMEPRAZOLE 20 MG CAPSULE PO SCH (07:04)
[2017-08-16] MEDS: Multivitamin Tab 1 TAB PO SCH (08:59)
[2017-08-16] MEDS: ASPIRIN 325 MG TABLET PO SCH (08:59)
[2017-08-16] MEDS: Metoprolol TARTRATE Tab 25 MG TAB PO SCH (08:59)
[2017-08-16] MEDS: ENOXAPARIN SODIUM 30 MG/0.3 ML SYRINGE SUBCUT SCH (08:59)
[2017-08-16 11:19] VITALS: BP 144/84; RESP 16; TEMP 98.1; O2SAT 98
== END 2017-08-16 13:55 | DRG 562 ==
LOC: ER 09:00 → MED/SURG 16:12
PROVIDERS: ADMIT Internal Medicine; ATTEND Internal Medicine